=== PATIENT | female | born 1985 | race Caucasian/White ===

== ENCOUNTER → 2017-10-26 | Outpatient (CLI) | payer OTHER, BC ==
[~2017-10-26] MED LIST: AUGMENTIN 500 M1 TAB PO; AZO; BCP TD; CIPRO 500MG TA500 MG PO; CIPRO500 MG PO; MVI; PHENERGAN 25 TA25 MG PO; PYRIDIUM 100MG100 MG PO
== END ==
LOC: MHCPAIN 09:16
DX: G89.29 Other chronic pain (principal); M47.24 Other spondylosis with radiculopathy, thoracic region
CPT/HCPCS: G0463